=== PATIENT | male | born 1975 | race Caucasian/White ===

== ENCOUNTER 2018-10-01 09:53 | Emergency (ER) | payer BC ==
[2018-10-01] MEDS ORDERED: ONDANSETRON 4 MG/2 ML VIAL ONE (11:46)
[2018-10-01] MEDS ORDERED: NA CHLORIDE 0.9% 1,000 ML ONE ×2 (11:46→13:32)
[2018-10-01] MEDS ORDERED: FAMOTIDINE 20 MG/2 ML VIAL IV ONE (11:47)
[2018-10-01 12:12] LABS: Absolute Lymphocytes (CBC) 0.3 K/uL (0.7-4.9); Absolute Monocytes 0.6 K/uL (0.1-1.3); Absolute Neutrophil 11.4 K/uL (1.8-8.0); Basophils % 0.3 % (0-1.3); Eosinophils % 0.1 % (0-4.4); Hematocrit 46.6 % (39.6-49.0); Lymphocytes % 2.7 % (15.3-44.8); MCH 31.9 pg (27.0-35.0); MCV 91.6 fL (80-100); Monocytes % 4.6 % (3.3-12.3); RBC Red Blood Cell Count 5.09 M/uL (4.33-5.43)
[2018-10-01 12:29] LABS: Albumin 4.2 g/dL (3.4-5.0); Bilirubin Direct 0.3 mg/dL (0-0.2); Potassium 3.7 mmol/L (3.5-5.1); Protein, Total 7.7 g/dL (6.4-8.2)
[2018-10-01 12:40] LABS: Urine Blood TRACE (NEG); Urine Glucose NEGATIVE (NEG); Urine Protein 1+ (NEG); Urine Specific Gravity 1.025 (1.005-1.030); Urine pH 5.5 (5.0-7.0)
--- NOTE | 2018-10-01 14:06 | RAD REPORT ---
EXAM DESCRIPTION: CT - Abdomen Pelvis W Contrast - 10/01/2018 1:47 pm CLINICAL HISTORY: Abdominal pain with vomiting and diarrhea COMPARISON: none. TECHNIQUE: Computed axial tomography of the abdomen pelvis was obtained. 100 cc Isovue-300 was admin istered intravenously. Oral contrast was not requested which limits evaluation of bowel. All CT scans are performed using dose optimization technique as appropriate and may include automated exposure control or mA/KV adjustment according to patient size. FINDINGS: The liver, spleen, pancreas, adrenal and kidneys appear unremarkable. There is no evidence of diverticulitis. An abnormal appendix is not seen. Small umbilical hernia IMPRESSION: No acute abnormality is displayed.
--- NOTE | 2018-10-01 14:23 | EDPHYS ---
Physician Documentation [facility] Name: Fracisco Alvarez Age: 43 yrs Sex: Male : 1975 Arrival Date: 10/01/2018 Time: 09:54 Bed 23 Private MD: ED Physician Julia Herrera HPI: 10/01 11:20 This 43 yrs old Male presents to ER via Ambulatory with complaints of cp Vomiting/Diarrhea. 11:20 The patient presents to the emergency department with vomiting, that is continuous, cp described as bilious, diarrhea, that is continuous. Onset: The symptoms/episode began/occurred yesterday. Possible causes: unknown. Associated signs and symptoms: Pertinent positives: fever. 11:20 Severity of symptoms: in the emergency department the symptoms are unchanged despite cp home interventions. Historical: - Allergies: 10:42 Verapamil; iw - Home Meds: 10:42 amlodipine 10 mg tab 1 tab once daily [Active]; losartan 50 mg oral tab 1 tab once iw daily [Active]; - PMHx: 10:42 Hypertension; spinal stenosis; iw - PSHx: 10:42 lipoma removed from back; iw - Immunization history:: Adult Immunizations up to date. - Social history:: Smoking status: Patient/guardian denies using tobacco. - Ebola Screening: : Patient negative for fever greater than or equal to 101.5 degrees Fahrenheit, and additional compatible Ebola Virus Disease symptoms Patient denies exposure to infectious person Patient denies travel to an Ebola-affected area in the 21 days before illness onset No symptoms or risks identified at this time. ROS: 11:30 Constitutional: Positive for poor PO intake, Negative for body aches, chills, fever. cp 11:30 Eyes: Negative for injury, pain, redness, and discharge. cp 11:30 ENT: Negative for drainage from ear(s), ear pain, sore throat, difficulty swallowing, difficulty handling secretions. 11:30 Cardiovascular: Negative for chest pain, edema, palpitations. 11:30 Respiratory: Negative for cough, shortness of breath, wheezing. 11:30 Abdomen/GI: Positive for nausea, vomiting, Negative for diarrhea, constipation, dysphagia, hematemesis, black/tarry stool, rectal bleeding. 11:30 Back: Negative for pain at rest, pain with movement, radiated pain. 11:30 : Negative for urinary symptoms. 11:30 Skin: Negative for cellulitis, rash. 11:30 Neuro: Negative for altered mental status, dizziness, headache, syncope, weakness. 11:30 All other systems are negative. Exam: 11:35 Constitutional: The patient appears in no acute distress, alert, awake, cp non-diaphoretic, non-toxic, well developed, well nourished. 11:35 Head/Face: Normocephalic, atraumatic. cp 11:35 Eyes: Periorbital structures: appear normal, Conjunctiva: normal, no exudate, no injection, Sclera: no appreciated abnormality, Lids and lashes: appear normal, bilaterally. 11:35 ENT: External ear(s): are unremarkable, Ear canal(s): are normal, clear, TM's: bulging, is not appreciated, bilaterally, erythema, is not appreciated, bilaterally, Nose: is normal, Mouth: Lips: moist, Oral mucosa: pink and intact, moist, Posterior pharynx: is normal, airway is patent, no erythema, no exudate. 11:35 Neck: ROM/movement: is normal, is supple, without pain, no range of motions limitations, no meningismus, no nuchal rigidity. 11:35 Chest/axilla: Inspection: normal, Palpation: is normal, no crepitus, no tenderness. 11:35 Cardiovascular: Rate: tachycardic, Rhythm: regular, Edema: is not appreciated, JVD: is not appreciated. 11:35 Respiratory: the patient does not display signs of respiratory distress, Respirations: normal, no use of accessory muscles, no retractions, no splinting, no tachypnea, labored breathing, is not present, Breath sounds: are clear throughout, no decreased breath sounds, no stridor, no wheezing. 11:35 Abdomen/GI: Inspection: abdomen appears normal, Bowel sounds: active, all quadrants, Palpation: soft, in all quadrants, mild abdominal tenderness, in the epigastric area, rebound tenderness, is not appreciated, voluntary guarding, is not appreciated, involuntary guarding, is not appreciated. 11:35 Back: pain, is absent, ROM is normal. 11:35 Skin: cellulitis, is not appreciated, no rash present. 11:35 Neuro: Orientation: to person, place \T\ time. Mentation: is normal, Cerebellar function: is grossly normal, Motor: is normal, Sensation: is normal. Vital Signs: 10:42 BP 125 / 89; Pulse 115; Resp 18 S; Temp 99.2(O); Pulse Ox 100% on R/A; Weight 95.25 kg; iw Height 5 ft. 10 in. (177.80 cm); Pain 0/10; 11:54 BP 126 / 83; Pulse 108; Resp 16; Pulse Ox 97% on R/A; aj 13:28 BP 132 / 87; Pulse 97; Resp 17; Pulse Ox 99% on R/A; aj 15:08 BP 130 / 82; Pulse 88; Resp 16; Pulse Ox 100% on R/A; rv 10:42 Body Mass Index 30.13 (95.25 kg, 177.80 cm) iw MDM: 11:09 Patient medically screened. cp 14:20 Data reviewed: vital signs, nurses notes, lab test result(s), radiologic studies, CT cp scan. 14:20 Counseling: I had a detailed discussion with the patient and/or guardian regarding: the cp historical points, exam findings, and any diagnostic results supporting the discharge/admit diagnosis, lab results, radiology results, to return to the emergency department if symptoms worsen or persist or if there are any questions or concerns that arise at home. 10/01 11:20 Order name: Basic Metabolic Panel; Complete Time: 12:43 10/01 12:44 Interpretation: Normal except: GLUC 119; CRE 1.37; GFR 56; CA 8.4. 10/01 11:20 Order name: CBC with Diff; Complete Time: 12:22 10/01 12:44 Interpretation: Normal except: WBC 12.4; CIRO% 92.3; LYM% 2.7; NEUT A 11.4. 10/01 11:20 Order name: Creatinine for Radiology; Complete Time: 12:43 10/01 12:44 Interpretation: Abnormal: CRE 1.32; GFR 59. 10/01 11:20 Order name: Hepatic Function; Complete Time: 12:43 10/01 11:20 Order name: Lipase; Complete Time: 12:44 10/01 11:21 Order name: Influenza Screen (a \T\ B); Complete Time: 12:44 10/01 11:20 Order name: IV Saline Lock; Complete Time: 11:53 10/01 11:20 Order name: Labs collected and sent; Complete Time: 11:53 cp 10/01 12:07 Order name: Urine Dipstick--Ancillary (enter results); Complete Time: 12:43 bd 10/01 12:22 Order name: CT Abd/Pelvis - W/Contrast: no oral contrast; Complete Time: 14:07 cp 10/01 14:08 Interpretation: No acute disease: Report reviewed. cp 10/01 11:20 Order name: Urine Dipstick-Ancillary (obtain specimen); Complete Time: 12:10 cp 10/01 14:09 Order name: PO challenge; Complete Time: 14:13 cp Administered Medications: 11:53 Drug: Zofran 4 mg Route: IVP; Site: right antecubital; aj 13:28 Follow up: Response: Nausea is decreased aj : Drug: Pepcid 20 mg Route: IVP; Site: right antecubital; aj 13:28 Follow up: Response: No adverse reaction aj 11: Drug: NS 0.9% 1000 ml Route: IV; Rate: 1 bolus; Site: right antecubital; aj 13:28 Drug: NS 0.9% 1000 ml Route: IV; Rate: 1 bolus; Site: right antecubital; aj Disposition: 17:40 Co-signature as Attending Physician, Julia Herrera MD. ma2 Disposition: 10/01/18 14:22 Discharged to Home. Impression: Nausea and vomiting, Diarrhea, unspecified. - Condition is Stable. - Discharge Instructions: Food Choices to Help Relieve Diarrhea, Adult, Diarrhea, Adult, Nausea and Vomiting, Adult. - Prescriptions for Bentyl 20 mg Oral Tablet - take 1 tablet by ORAL route every 6 hours As needed; 20 tablet. Pepcid 20 mg Oral Tablet - take 1 tablet by ORAL route every 12 hours for 10 days; 20 tablet. Lomotil 2.5- 0.025 mg Oral Tablet - take 1 tablet by ORAL route every 6 hours As needed; 20 tablet. - Medication Reconciliation Form, Thank You Letter, Antibiotic Education, Prescription Opioid Use form. - Follow up: Private Physician; When: 2 - 3 days; Reason: Recheck today's complaints. - Problem is new. - Symptoms have improved. Signatures: Dispatcher [employer] Jaylyn Reyes RN Leigh Paul RN RN iw Cleveland Mcdonnell, NAVJOT PA cp Julia Herrera MD MD ma2 Ilan Mesa RN RN rv Corrections: (The following items were deleted from the chart) 12:44 12:44 Normal except: GLUC 119; CRE 1.37; GFR 56. cp cp 15:10 14:22 10/01/2018 14:22 Discharged to Home. Impression: Nausea and vomiting; Diarrhea, rv unspecified. Condition is Stable. Forms are Medication Reconciliation Form, Thank You Letter, Antibiotic Education, Prescription Opioid Use. Follow up: Private Physician; When: 2 - 3 days; Reason: Recheck today's complaints. Problem is new. Symptoms have improved. cp
--- NOTE | 2018-10-01 14:23 | ER ---
Nurse's Notes [facility] Name: Fracisco Alvarez Age: 43 yrs Sex: Male : 1975 Arrival Date: 10/01/2018 Time: 09:54 Bed 23 Private MD: Diagnosis: Nausea and vomiting;Diarrhea, unspecified Presentation: 10/01 10:40 Presenting complaint: Patient states: nausea, vomiting since last night, vomited about iw 15 times, unable to tolerate fluids. Transition of care: patient was not received from another setting of care. Onset of symptoms was October 01, 2018. Risk Assessment: Do you want to hurt yourself or someone else? Patient reports no desire to harm self or others. Initial Sepsis Screen: Does the patient meet any 2 criteria? No. Patient's initial sepsis screen is negative. Does the patient have a suspected source of infection? No. Patient's initial sepsis screen is negative. Care prior to arrival: None. 10:40 Method Of Arrival: Ambulatory iw 10:40 Acuity: MARIA ELENA 3 iw Historical: - Allergies: 10:42 Verapamil; iw - Home Meds: 10:42 amlodipine 10 mg tab 1 tab once daily [Active]; losartan 50 mg oral tab 1 tab once iw daily [Active]; - PMHx: 10:42 Hypertension; spinal stenosis; iw - PSHx: 10:42 lipoma removed from back; iw - Immunization history:: Adult Immunizations up to date. - Social history:: Smoking status: Patient/guardian denies using tobacco. - Ebola Screening: : Patient negative for fever greater than or equal to 101.5 degrees Fahrenheit, and additional compatible Ebola Virus Disease symptoms Patient denies exposure to infectious person Patient denies travel to an Ebola-affected area in the 21 days before illness onset No symptoms or risks identified at this time. Screenin:51 Abuse screen: Denies threats or abuse. Denies injuries from another. Nutritional aj screening: No deficits noted. Tuberculosis screening: No symptoms or risk factors identified. Fall Risk None identified. Assessment: 11:51 General: Appears in no apparent distress. comfortable, Behavior is calm, cooperative, aj appropriate for age. Pain: Denies pain. Neuro: Level of Consciousness is awake, alert, obeys commands, Oriented to person, place, time, situation, Appropriate for age. Respiratory: Airway is patent Respiratory effort is even, unlabored, Respiratory pattern is regular, symmetrical. GI: Abdomen is flat, non-distended, Reports diarrhea, nausea. Derm: Skin is intact, is healthy with good turgor, Skin is pink, warm \T\ dry. normal. 14:13 Reassessment: Patient appears in no apparent distress at this time. No changes from aj previously documented assessment. Patient and/or family updated on plan of care and expected duration. Pain level reassessed. Patient is alert, oriented x 3, equal unlabored respirations, skin warm/dry/pink. Patient tolerating powerade Patient denies pain at this time. Patient states feeling better. Patient states symptoms have improved. Vital Signs: 10:42 BP 125 / 89; Pulse 115; Resp 18 S; Temp 99.2(O); Pulse Ox 100% on R/A; Weight 95.25 kg; iw Height 5 ft. 10 in. (177.80 cm); Pain 0/10; 11:54 BP 126 / 83; Pulse 108; Resp 16; Pulse Ox 97% on R/A; aj 13:28 BP 132 / 87; Pulse 97; Resp 17; Pulse Ox 99% on R/A; aj 15:08 BP 130 / 82; Pulse 88; Resp 16; Pulse Ox 100% on R/A; rv 10:42 Body Mass Index 30.13 (95.25 kg, 177.80 cm) iw ED Course: 09:54 Patient arrived in ED. as 10:41 Triage completed. iw 10:42 Arm band placed on. iw 11:09 Cleveland Mcdonnell PA is PHCP. cp 11:09 Julia Herrera MD is Attending Physician. cp 11:32 Jaylyn Goss, KHADRA is Primary Nurse. aj 11:51 Patient has correct armband on for positive identification. Bed in low position. Call aj light in reach. Side rails up X 1. Pulse ox on. NIBP on. 11:51 Inserted saline lock: 20 gauge in right antecubital area, using aseptic technique. aj Blood collected. 12:33 Radiology exam delayed due to lab results not completed at this time. (BUN/Creatinine). nj 13:44 CT completed. Patient tolerated procedure well. Patient moved back from CT. nj 13:47 CT Abd/Pelvis - W/Contrast: no oral contrast In Process Unspecified. EDMS 15:10 No provider procedures requiring assistance completed. IV discontinued, bleeding rv controlled, No redness/swelling at site. Pressure dressing applied. Administered Medications: :53 Drug: Zofran 4 mg Route: IVP; Site: right antecubital; aj 13:28 Follow up: Response: Nausea is decreased aj : Drug: Pepcid 20 mg Route: IVP; Site: right antecubital; aj 13:28 Follow up: Response: No adverse reaction aj : Drug: NS 0.9% 1000 ml Route: IV; Rate: 1 bolus; Site: right antecubital; aj 13:28 Drug: NS 0.9% 1000 ml Route: IV; Rate: 1 bolus; Site: right antecubital; aj Outcome: 14:22 Discharge ordered by MD. cp 15:10 Discharged to home ambulatory. rv 15:10 Condition: good 15:10 Discharge instructions given to patient, Instructed on discharge instructions, follow up and referral plans. medication usage, Demonstrated understanding of instructions, follow-up care, medications, Prescriptions given X 3. 15:10 Patient left the ED. rv Signatures: Dispatcher [employer] Jaylyn Reyes, RN RN Tasneem Garcia Irene, RN RN Cleveland Grace PA PA Homar Grace Ronaldo RN RN rv
== END 2018-10-01 15:10 | disposition home or self-care (01) ==
LOC: ER 09:53
DX: R19.7 Diarrhea, unspecified (principal); I10 Essential (primary) hypertension; Z88.8 Allergy status to other drugs, medicaments and biological substances
CPT/HCPCS: 36415; 74177; 80048; 80076; 81003; 83690; 85025; 87804; 96374; 96375; 99284; J2405; J7030; Q9967